=== PATIENT | female | born 1970 | race Caucasian/White ===

== ENCOUNTER 2017-11-06 19:39 | Emergency (ER) | payer OTHER, SELFPAY ==
[2017-11-06 19:40] VITALS: BP 121/97; PULSE 75; RESP 18; TEMP 36.9; O2SAT 100; BMI 20.3
--- NOTE | 2017-11-06 20:17 | EKG12_ITS ---
Test Reason : CP Blood Pressure : / mmHG Vent. Rate : 073 BPM Atrial Rate : 073 BPM P-R Int : 120 ms QRS Dur : 086 ms QT Int : 368 ms P-R-T Axes : 042 083 045 degrees QTc Int : 405 ms Normal sinus rhythm Normal ECG Confirmed by RHONDA BARR MD ([id number]), photo editor BHARAT ZAMARRIPA ([id number]) on 11/12/2017 2:34:11 PM Referred By: GUICHO Confirmed By:RHONDA BARR MD
--- NOTE | 2017-11-06 20:20 | RAD_ITS ---
STUDY: X-RAY CHEST REASON FOR EXAM: Female, 47 years old. Chest pain TECHNIQUE: Frontal view of the chest COMPARISON: None. FINDINGS: The lungs are clear. There are no pleural effusions. There is no pneumothorax. The heart is normal in size. The visualized osseous structures are within normal limits. RAD/Chest 1 View (Portable) IMPRESSION: No acute thoracic pathology. Electronically Signed: Myron Lynn, at 20:34 EDT Tel , Service support ,
--- NOTE | 2017-11-06 20:20 | ED.RN ---
no old ekgs in [facility].
[2017-11-06] MEDS: Aspirin 81 MG TAB.CHEW 324 MG PO (20:26)
[2017-11-06 20:27] VITALS: O2SAT 99
[2017-11-06 20:46] LABS: Absolute Lymphocyte Count 2.11 X10^3/ul (0.83-4.51); Absolute Neutrophil Count 5.3 X10^3/uL (2.0-7.7); Basophil# 0.02 X10^3/uL; Basophil% 0.2 % (0-1); Eosinophil# 0.18 X10^3/uL; Eosinophils% 2.1 % (0-5); Hematocrit 39.2 % (37-47); Hemoglobin 12.8 g/dl (12.0-15.0); Lymphocyte # 2.11 X10^3/ul (4.0); Lymphocyte % 24.5 % (19-41); Mean Corp Hgb Conc 32.7 g/gl (32-36); Mean Corpuscular Hgb 28.6 pg (27.0-32.0); Mean Corpuscular Volume 87.7 fL (81-99); Mean Platelet Vol. 10.7 fl (6.2-12.0); Monocyte# 1.03 X10^3/uL; Monocyte% 11.9 % (0-10); Neutrophil # 5.27 X10^3/uL (2.7-7.7); Neutrophil % 61.2 % (47-70); Platelet Count 278 K/mm3 (150-450); RBC Distribution Width CV 17.3 % (11.6-14.6); RBC Distribution Width SD 54.1 fl (35.1-43.9); Red Blood Count 4.47 M/mm3 (4.2-5.4); White Blood Count 8.6 K/mm3 (4.4-11.0)
[2017-11-06 20:48] VITALS: BP 113/73; PULSE 69; RESP 17; O2SAT 98
[2017-11-06 20:48] LABS: POSITIVE COUNT NO; POSITIVE DIFFERENTIAL NO; POSITIVE MORPHOLOGY NO
--- NOTE | 2017-11-06 20:48 | ED.VISSUMM ---
- ER Visit Summary Date of Service: 11/06/17 Chief Complaint: Chest pain History of Present Illness: The patient is a 47 F presenting with chest pain. She states that she has tightness in her chest which radiates to her jaw and right arm. She states she felt flushed and dizzy with this. She states it started approximately 30 minutes ago. She states it is starting to improve. At its worst it was 6 out of 10. She denies PE/DVT risk factors. Denies CAD risk factors. She is not a smoker. Physical Examination: Vitals are stable. Patient is afebrile. Alert no acute distress. HEENT exam is unremarkable. Neck is supple. Lungs are clear and equal bilaterally. Heart is regular rate and rhythm. Abdomen is soft nontender nondistended. Extremities are unremarkable. Skin is warm and dry. No focal neurologic deficit. Remainder of exam is unremarkable. Emergency Department Course and Treatment: Patient was given aspirin on arrival. CBC, chemistries unremarkable. Troponin is negative. EKG is sinus rate of 73. Chest x-ray shows no acute process. Patient is pain-free on reevaluation. Recommend admission for further evaluation and stress testing. Patient does not want to be admitted to the hospital. She is advised risks of RI and . Patient verbalizes understanding of this risk and signed out AGAINST MEDICAL ADVICE. She will follow-up with her primary care physician. She is advised return to ED if she has any worsening complaints. Disposition: Left AGAINST MEDICAL ADVICE Impression: Chest pain This note was generated with [employer] dictation software. It may contain incorrect words, spelling, and punctuation that were not noted in review of the chart prior to signing ED Disposition - Plan for ED Patient: Chief Complaint: Chest Pain Instructions: ED Chest Pain Atypical Unkn Cause Referrals: Jaja Pennington MD [Primary Care Provider] -
[2017-11-06 20:57] LABS: Anion Gap 6 (5-15); BUN 15 mg/dL (7-18); BUN/Creat Ratio 17.9 RATIO (10-20); Calcium,Total 8.9 mg/dL (8.5-10.1); Chloride 108 mmol/L (98-107); Creatinine, Serum 0.84 mg/dL (0.55-1.02); EST Glomerular Filtration Rate 78 mL/min (>60); Est Glom Filt Rate - Afr Amer 94 mL/min (>60); Estimated Creatinine Clearance 71.08 ml/min; Glucose 93 mg/dL (74-106); Potassium 3.8 mmol/L (3.5-5.1); Sodium Level 143 mmol/L (136-145)
[2017-11-06 21:10] VITALS: BP 110/69; PULSE 67; RESP 24; O2SAT 99
--- NOTE | 2017-11-06 21:45 | ED.DEP ---
ED Disposition - Plan for ED Patient: Chief Complaint: Chest Pain Instructions: ED Chest Pain Atypical Unkn Cause Referrals: Jaja Pennington MD [Primary Care Provider] -
[2017-11-06 22:11] VITALS: BP 109/79; PULSE 64; RESP 18
== END 2017-11-06 22:18 | disposition home or self-care (01) ==
PROVIDERS: Emergency Provider Emergency Medicine; Family Provider Family Medicine; PCP Family Medicine
DX: R07.9 Chest pain, unspecified (principal)
CPT/HCPCS: 71045; 80048; 84484; 85025; 93005; 99284; A4216

== ENCOUNTER 2018-10-16 14:09 | Emergency (ER) | payer OTHER, SELFPAY ==
[2018-10-16 14:10] VITALS: BP 114/76; PULSE 99; RESP 18; TEMP 37.6; O2SAT 98; BMI 21.4
--- NOTE | 2018-10-16 15:08 | US_ITS ---
STUDY: ULTRASOUND OF THE FEMALE PELVIS - COMPLETE REASON FOR EXAM: Female, 48 years old. , ovarian cyst LMP: 10/01/2018 TECHNIQUE: Transabdominal and Transvaginal TECHNICAL QUALITY: Adequate. COMPARISON: None. FINDINGS: The uterus is anteverted and is in a midline position. The uterus measures 9.6 x 4.5 x 5.2 cm. There is a Nabothian cyst of the cervix. The endometrium measures 12 mm in thickness, and is hypoechoic. There is no demonstrated endometrial mass. There is no demonstrated myometrial mass. I.U.D. - The patient does not have an I.U.D. The right ovary is visualized. The right ovary measures 9.8 x 10.9 x 10.1 cm. 8.3 cm round anechoic mass with increased transmission within the right ovary consistent with a physiologic cyst, poor ovarian cyst, or cystadenoma. Follow-up ultrasound is recommended in 12 months document stability. There is no visualized right adnexal mass or complex lesion. There is normal arterial and normal venous vascularity. The left ovary is visualized. The left ovary measures 6.7 x 6.2 x 4.2 cm. 6.6 cm hypoechoic mass with increased through transmission with a 2.5 cm mural nodule which is hyperechoic which may represent an ovarian dermoid. There is no visualized left adnexal mass or complex lesion. There is normal arterial and normal venous vascularity. There is no fluid in the cul-de-sac. The pre void volume of the bladder was ml. The post void volume of the bladder was ml. Polycystic ovary disease: No. US/Transvaginal Non- IMPRESSION: 1. 8.3 cm right physiologic cyst, partly ovarian cyst, cystadenoma. Follow-up ultrasound is recommended in 12 months document stability or resolution. 2. 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 CT and/or MRI may be useful. Electronically Signed: Pineda Lynn MD at 16:16 EDT Tel , Service support ,
--- NOTE | 2018-10-16 15:08 | CT_ITS ---
STUDY: CT ABDOMEN AND PELVIS WITH CONTRAST REASON FOR EXAM: Female, 48 years old. Bloating, right lower quadrant pain RADIATION DOSAGE (If Supplied By Facility): CTDIvol = ( 7.50 ) mGy, DLP = ( 317.20 ) mGycm TECHNIQUE: Transaxial images were obtained from the dome of the diaphragm to the symphysis pubis without oral contrast. 100 IV/Oral Isovue 300 was administered. Sagittal and coronal images were reconstructed. Individualized dose optimization techniques were used for this CT. COMPARISON: None. FINDINGS: The visualized lung bases are unremarkable. The visualized portions of the heart are within normal limits. Liver is unremarkable aside from a subtle hypoattenuation in the right lobe, likely hemangioma. No suspicious enhancing lesion is noted. There is a thin rim of ascites around the right lobe of the liver. Normal gallbladder and extrahepatic biliary system. Normal spleen. Normal pancreas. Normal bilateral adrenal glands. Normal right kidney. Normal left kidney. Normal visualized stomach. Normal small intestine. Normal colon. The appendix is visualized and appears normal. Appendix best seen on axial images 75-82 Normal abdominal aorta. Normal inferior vena cava. Normal retroperitoneum. Normal urinary bladder. There is a large complex cystic structure likely originating in the pelvis and extending into the mid lower abdomen, likely ovarian in origin. It measures approximately 10.2 x 9.1 x 9.2 cm. It is causing some mass effect upon lower abdominal bowel loops. Though it likely represents a benign cystadenoma a more sinister neoplastic process cannot be excluded. Further evaluation with ultrasound or MRI would be of help. There is associated free fluid No suspicious lymphadenopathy, or omental thickening noted. Normal abdominal wall. Normal osseous structures. CT/Abdomen/Pelvis WITH Contrast IMPRESSION: Large complex cystic mass in the lower abdomen and pelvis, likely ovarian in origin measuring 10.2 x 9.1 x 9.2 cm. I suspect this likely is a benign cystadenoma but a more sinister neoplastic process cannot be excluded. Recommend further evaluation with MRI or ultrasound, as well as correlation with tumor markers. There is mass effect upon bowel loops and some associated free fluid is noted but there is no suspicious omental thickening or adenopathy noted 2 cm hypoattenuation in the right lobe of the liver, likely hemangioma Normal appendix visualized Electronically Signed: Jonathan Singh MD at 17:52 EDT , Service support ,
--- NOTE | 2018-10-16 15:10 | ED.VISSUMM ---
- ER Visit Summary Date of Service: 10/16/18 Chief Complaint: Abdominal pain History of Present Illness: The patient is a [address] Lockwood and Dr. Damon. She reports that she has a known 10 cm right ovarian cyst that was diagnosed in June. She had a repeat ultrasound in July and an MRI this month. She reports that she is supposed to have surgery for this in the future, but it is not scheduled. Patient reports that she has lower abdominal pain that began 3 days ago. Initially pain was stabbing. It is now a dull, continuous pain. She is pain-free currently. She reports that her pain is 8 out of 10 if she moves or lays on her right side. She reports she was nauseated and vomiting 2 days ago. She has not vomited since then. She vomited 6 times then and there was no blood in her emesis. She denies any diarrhea. Her last bowel was today. She said no melena or hematochezia. No dysuria or frequency. She does report that she is felt bloated and had a poor appetite. Physical Examination: Vitals: Stable. Afebrile. General: Well-nourished and well-developed. Head: Normocephalic atraumatic. Neck: Supple, no lymphadenopathy. No JVD. Nontender. Cardiovascular: Regular rate and rhythm. No murmurs. Respiratory: No respiratory distress. Clear to auscultation bilaterally. Abdominal: Soft, mild suprapubic tenderness and moderate right lower quadrant tenderness to palpation. It does feel as though there is a palpable mass in the right lower quadrant. Nondistended, normal bowel sounds. No guarding, rebound, or peritoneal signs. Back: Nontender. Extremities: Nontender, no edema. Skin: Normal color, no rash. Neurologic: Alert and oriented ?3. Cranial nerves II through XII are intact. Normal strength and sensation. Psych: Normal affect. Test Results: CBC shows a white count of 14.8 with 82 segmented neutrophils and 7 lymphocytes. Chem-7 shows a glucose of 109. Urinalysis is negative. Clinical Impression(s) from Imaging Studies Abdomen/Pelvis CT 10/16/18 15:08 IMPRESSION: Large complex cystic mass in the lower abdomen and pelvis, likely ovarian in origin measuring 10.2 x 9.1 x 9.2 cm. I suspect this likely is a benign cystadenoma but a more sinister neoplastic process cannot be excluded. Recommend further evaluation with MRI or ultrasound, as well as correlation with tumor markers. There is mass effect upon bowel loops and some associated free fluid is noted but there is no suspicious omental thickening or adenopathy noted 2 cm hypoattenuation in the right lobe of the liver, likely hemangioma Normal appendix visualized Electronically Signed: Jonathan Singh MD at 17:52 EDT , Service support , Transvaginal US 10/16/18 15:08 IMPRESSION: 1. 8.3 cm right physiologic cyst, partly ovarian cyst, cystadenoma. Follow-up ultrasound is recommended in 12 months document stability or resolution. 2. 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 CT and/or MRI may be useful. Electronically Signed: Pineda Lynn MD at 16:16 EDT Tel , Service support , Emergency Department Course and Treatment: Patient had an IV placed. She was given a liter normal saline. She refused pain or nausea medications. Treatment Plan: Patient was discussed with Dr. Ndiaye who spoke with Dr. Damon, whom the patient saw in the office yesterday. This ovarian cyst is so large that it is unlikely that she is having intermittent torsion. She does not have appendicitis. She will be discharged instructions to follow-up with Dr. Paul next week for further evaluation and treatment. She is refused pain or nausea medications at home. Return to the emergency department for any worsening symptoms. Disposition: To home in improved and stable condition. Impression: 1. Right ovarian cyst. This note was generated with [employer] software. It may contain incorrect words, spelling, and punctuation that were not noted in review of the chart prior to signing ED Disposition - Plan for ED Patient: Disposition: Home or Assisted Living Instructions: Ovarian Cyst Referrals: Sherri Paul MD [STAFF PHYSICIAN] - As soon as possible
[2018-10-16] MEDS: 0.9% Normal Saline 1,000 ML 1000 ML IV (15:15)
[2018-10-16 15:32] LABS: Absolute Neutrophil Count 12.2 X10^3/uL (2.0-7.7); Basophil# 0.02 X10^3/uL; Basophil% 0.1 % (0-1); Eosinophil# 0.02 X10^3/uL; Eosinophils% 0.1 % (0-5); Hematocrit 37.3 % (37-47); Hemoglobin 12.2 g/dl (12.0-15.0); Internal QC Validated? YES +Cl - CLEAR BKGD; Lymphocyte % 7.4 % (19-41); Mean Corp Hgb Conc 32.7 g/gl (32-36); Mean Corpuscular Hgb 29.4 pg (27.0-32.0); Mean Corpuscular Volume 89.9 fL (81-99); Mean Platelet Vol. 10.8 fl (6.2-12.0); Monocyte# 1.48 X10^3/uL; Neutrophil # 12.17 X10^3/uL (2.7-7.7); Neutrophil % 82.2 % (47-70); POSITIVE COUNT NO; POSITIVE DIFFERENTIAL NO; POSITIVE MORPHOLOGY NO; Platelet Count 230 K/mm3 (150-450); Pregnancy, Serum, hCG Quali. NEGATIVE Negative; RBC Distribution Width CV 14.8 % (11.6-14.6); Red Blood Count 4.15 M/mm3 (4.2-5.4); White Blood Count 14.8 K/mm3 (4.4-11.0)
[2018-10-16 15:37] LABS: Anion Gap 8 (5-15); BUN 11 mg/dL (7-18); BUN/Creat Ratio 12.2 RATIO (10-20); Calcium,Total 9.2 mg/dL (8.5-10.1); Chloride 99 mmol/L (98-107); EST Glomerular Filtration Rate 71 mL/min (>60); Est Glom Filt Rate - Afr Amer 86 mL/min (>60); Estimated Creatinine Clearance 63.92 ml/min; Glucose 109 mg/dL (74-106); Potassium 3.6 mmol/L (3.5-5.1); Sodium Level 136 mmol/L (136-145)
[2018-10-16 15:39] LABS: Bacteria 0 SEEN /hpf (None Seen); Mucous, Urine 0 SEEN /hpf (<or=2+)
[2018-10-16 15:44] LABS: Color, Urine Yellow (Yellow); Glucose, Dipstick Normal (Normal); Ketone-Dipstick 5 mg/dl (Negative); Leukocyte Esterase-Dipstick 25 /ul (Negative); Nitrite-Dipstick Negative (Negative); Occult Blood-Urine 10 /ul (Negative); Protein-Dipstick Negative (Negative); Specific Gravity, Urine 1.005 (1.002-1.030); Urine Bilirubin Dipstick Negative (Negative); Urine Clarity Sl. Cloudy (Clear); Urine Urobilinogen Normal (Normal)
[2018-10-16 15:57] LABS: Red Blood Cells-Urine 0-5 SEEN /hpf (0-5); Squamous Epithelial Cells - UA 0-5 SEEN /hpf (5-10); White Blood Cells 0-5 SEEN /hpf (0-5)
[2018-10-16 16:28] LABS: AST(SGOT) 12 U/L (15-37); Alanine Aminotransfer ALT/SGPT 21 U/L (13-56); Albumin, Serum 3.6 g/dL (3.2-5.0); Alkaline Phosphatase 67 U/L (45-117); Bilirubin, Direct 0.18 mg/dL (0.00-0.30); Globulin 4.5 g/dL (2.2-4.2); Protein, Total 8.1 g/dL (6.4-8.2)
[2018-10-16 16:38] LABS: Lipase 82 U/L (73-393)
[2018-10-16 17:03] VITALS: RESP 18
[2018-10-16 18:59] VITALS: BP 113/70; PULSE 106; RESP 16; O2SAT 95
== END 2018-10-16 19:03 | disposition home or self-care (01) ==
LOC: ED 16:14
PROVIDERS: Emergency Provider Emergency Medicine; Family Provider Family Medicine; PCP Family Medicine
DX: N83.201 Unspecified ovarian cyst, right side (principal)
CPT/HCPCS: 74177; 76830; 80048; 80076; 81001; 83690; 84703; 85025; 96360; 96361; 99283; J7030; Q9967; A4216

== ENCOUNTER 2018-10-17 20:21 | Inpatient (IN) | payer OTHER, SELFPAY ==
[2018-10-16 14:10] VITALS: BMI 21.4
[2018-10-17 20:22] VITALS: BP 111/72; PULSE 106; RESP 14; TEMP 35.9; O2SAT 96; BMI 21.7
--- NOTE | 2018-10-17 20:54 | ED.VISSUMM ---
- ER Visit Summary Date of Service: 10/17/18 Chief Complaint: Abdominal pain History of Present Illness: The patient is a 48 F with 2 known ovarian cyst. Patient was seen in the ED yesterday and had a CAT scan and an ultrasound. Patient states she spoke with Dr. Damon today was told to come to the hospital for surgery. She last ate approximately an hour ago. She has had Tylenol today for pain declines anything further at this time. Physical Examination: Vital signs significant only for heart rate of 106. Patient sitting upright in bed no acute distress. Heart is regular rate and rhythm. Lung sounds are clear. Abdomen is soft with mild tenderness, worse in the right lower quadrant. No guarding or rebound. Test Results: [] Emergency Department Course and Treatment: I reviewed the patient's work-up from yesterday. I spoke with Dr. Damon as well. We will redraw a CBC and a type and screen at this time. Patient will be admitted to [facility] floor Dr. Damon will see her there. Treatment Plan: [] Disposition: Admit Impression: Ovarian cysts This note was generated with [employer] dictation software. It may contain incorrect words, spelling, and punctuation that were not noted in review of the chart prior to signing ED Disposition - Plan for ED Patient: Referrals: Jaja Pennington MD [Primary Care Provider] -
[2018-10-17] MEDS: 0.9% Normal Saline 1,000 ML 150 ML IV (21:02)
--- NOTE | 2018-10-17 21:03 | PCM.HP.OB ---
- Problem List (1) Bilateral ovarian cysts Status: Acute (2) Abdominal pain Status: Acute History Date of Admission: 10/17/18 History of this : This is a 48 year-old who presents to the ED with severe abdominal pain. She has known bilateral ovarian cysts. She went into the ED yesterday and had imaging repeated at that time. She was discharged home. She called in today reporting persistent severe pain that is 7-8/10. She states she is unable to move because of the pain and she cannot stand up straight given the discomfort. The pain is bilateral across her pelvis and abdomen. She denies any other symptoms. Allergies No Known Allergies Allergy (Verified 10/17/18 20:24) Home Medications: Home Medications NK 11/06/17 Acetaminophen [Tylenol Extra Strength] 500 - 1,000 mg PO Q6H PRN PRN 10/17/18 Smoking Status: Never smoker History Past Pregnancies: Past Pregnancies Delivery Date Name GA/Weeks Outcome Route Weight Infant Gender Labor Length Anesthesia Delivery Location Provider FOB Review of Systems Constitutional: Denies: Chills, Fever Cardiovascular: Denies: Chest Pain Respiratory: Denies: Shortness of Breath Gastrointestinal: Reports: Abdominal Pain, Diarrhea. Denies: Constipation, Nausea, Vomiting Genitourinary: Denies: Dysuria Physical Exam Vitals: Vital Signs Temp Pulse Resp BP Pulse Ox 96.6 F L 106 H 14 111/72 96 10/17/18 20:22 10/17/18 20:22 10/17/18 20:22 10/17/18 20:22 10/17/18 20:22 General: Alert, No apparent distress HEENT: Atraumatic Cardiovascular: Regular rate Lungs: Normal air movement Abdomen: Soft, - - +Diffusely tender and voluntary gaurding Extremities:: No edema Neurological: Neuro grossly intact Assessment/Plan All Active Problems Bilateral ovarian cysts (Acute) Abdominal pain (Acute) This is a 48 year-old with known bilateral ovarian cysts and severe abdominal pain. +Voluntary guarding on exam and diffuse tenderness. - CT scan yesterday in the ED shows a 10x9x9 cm cystic mass in the pelvis with mass effect on the bowel - Pelvic US yesterday shows a right ovarian cyst measuring 8.3 cm in size, and a 6.6 cm solid mass in the left ovary that is likely a dermoid - She had a CA-125 in the office that was normal - Will admit for bilateral cystectomy - Discussed r/b/a of a laparoscopic cystectomy, possible laparotomy, possible oophorectomy. Pt desires to proceed with surgery given severe, persistent pain and concern for torsion
[2018-10-17 21:27] LABS: Absolute Lymphocyte Count 0.85 X10^3/ul (0.83-4.51); Basophil# 0.01 X10^3/uL; Basophil% 0.1 % (0-1); Eosinophil# 0.04 X10^3/uL; Eosinophils% 0.3 % (0-5); Hematocrit 31.1 % (37-47); Hemoglobin 10.3 g/dl (12.0-15.0); Lymphocyte # 0.85 X10^3/ul (4.0); Mean Corp Hgb Conc 33.1 g/gl (32-36); Mean Corpuscular Hgb 29.6 pg (27.0-32.0); Mean Corpuscular Volume 89.4 fL (81-99); Mean Platelet Vol. 10.1 fl (6.2-12.0); Monocyte# 1.19 X10^3/uL; Monocyte% 9.8 % (0-10); Neutrophil # 10.02 X10^3/uL (2.7-7.7); Neutrophil % 82.6 % (47-70); Platelet Count 188 K/mm3 (150-450); RBC Distribution Width CV 14.6 % (11.6-14.6); RBC Distribution Width SD 47.6 fl (35.1-43.9); Red Blood Count 3.48 M/mm3 (4.2-5.4); White Blood Count 12.1 K/mm3 (4.4-11.0)
[2018-10-17 21:30] LABS: POSITIVE COUNT NO; POSITIVE DIFFERENTIAL NO; POSITIVE MORPHOLOGY NO
[2018-10-17 22:26] VITALS: BMI 20.6
[2018-10-17 22:37] VITALS: BMI 20.6
[2018-10-17 22:38] VITALS: BP 114/64; PULSE 92; RESP 16; TEMP 36.9; O2SAT 99; BMI 20.6
[2018-10-17 23:30] LABS: Internal QC Validated? YES +Cl - CLEAR BKGD; Pregnancy, Urine Negative Negative
--- NOTE | 2018-10-17 23:30 | OP.PCM_ITS ---
Problem List (1) Bilateral ovarian cysts Status: Acute (2) Abdominal pain Status: Acute Report of Operation Date of Procedure: 10/17/18 Pre-Operative Diagnosis: Bilateral ovarian cysts, abdominal pain Post-Operative Diagnosis: As above, right ovarian torsion Surgery/Procedure Performed:: Laparoscopic right salpingoophorectomy, left ovarian cystectomy, mini laparotomy Description of Surgical Findings:: Enlarged right ovarian mass about 8-10 cm in size with a torsion x 2. The right ovarian mass appeared inflamed with both solid and cystic components. The mass had filmy adhesions to the omentum and pelvic side wall. No identifiable right ovarian tissue. The right fallopian tube was edematous and purple in color. The left ovary had a 2-3 cm cyst consistent with a likely dermoid present, and the left ovary was otherwise normal. No torsion of the left ovary. The left fallopian tube was normal. Uterus and pelvis normal appearing. Descent of the uterus and cervix almost to the level of the introitus Type of Anesthesia:: General Special Medications: None Specimen's removed: Right ovary and fallopian tube, left ovarian cyst Drains: None Estimated Blood Loss (mL): 50 cc Fluids Replaced: 2500 cc Description of Procedure: Physician Practice Manager: Dr. García Patient was prepped and draped in usual sterile fashion in dorsal lithotomy position using yellow fin stirrups. A weighted speculum was placed in the vagina to expose the cervix. A single tooth tenaculum was placed on the anterior lip of the cervix. A uterine manipulator was placed. Gloves were then changed and att ention was turned to the abdominal portion of the case. A supraumbilical incision was made to accommodate a 12 mm port. The 12 mm port was placed under direct visualization using the camera. Once confirmed intraperitoneal, CO2 insufflation was initiated. A left lateral 5 mm port was then placed. A right lateral 5 mm port was placed. The pelvis was inspected with the above findings noted. The right ovary was elevated out of the pelvis and untwisted x 2. The right uteroovarian ligament was cauterized and transected. The right ureter was then identified. The right IP was cauterized and transected with good visualization of the ureter. The right ovary and fallopian tube were removed and placed along the right pelvic side wall. The left ovary was then elevated out of the pelvis and using scissors an incision was made on the ovary. The suction edging machine catcher was placed in the incision and schwab-tamayo fluid was drained. The incision was extended, and using blunt dissection the ovarian cyst was shell ed out and removed from the left ovary. The remainder of the left ovarian tissue appeared normal. Hemostasis was noted. A mini Pfannenstiel laparotomy was made. A laparoscopic bag was placed through the mini laparotomy incision and clamps were placed around it to maintain a pneumoperitoneum. The bag was opened and the right ovary and tube, as well as the left ovarian cyst, were placed in the bag. The bag was brought up to the incision and opened. The laparoscopic instruments were removed. The left ovarian cyst was removed from the bag and sent to pathology for review. The right ovary was drained of serous fluid. Using Shirley clamps the right ovary was then removed and sent to pathology for review. The fascia of the mini laparotomy was then closed with vicry in a running fashion. The camera was then placed and pneumoperitoneum was obtained. The pelvis was irrigated and hemostasis was noted. The camera and ports were removed. Incisions were closed with Monocryl and Dermabond. All instruments were removed from the vagina. Patient tolerated the procedure well and was taken to the recovery room in stable condition. Grafts/Implants Used: None - Complications None - Admit VTE Documentation VTE Present on Admission: No VTE Mechan Device Prophylaxis: SCD's VTE Pharm Prophylaxis ordered?: No
--- NOTE | 2018-10-17 23:30 | CYST_PTH ---
PATIENT: DAVID BLACKBURN LOC: [facility] U#:[id number] AGE/SX: 48/F ROOM: MS321 RE10/17/[address]: Dr. Augusta Damon DO : 1970 BED: 1 DIS: 10/18/2018 SPEC #: [id number] RECD: 10/20/18 07:53 STATUS: MARY REVeronica #: [id number] [place]: 10/17/18 23:[address]: Augusta Damon DEPT: SURGICAL PATHOLOGY RECD BY: Elijah Mccauley ENTERED: 10/20/18 10:09 SP TYPE: Cyst OTHR DR: Dr. Jaja Pennington MD Tissues: A - OVARIAN CYST B - OVARIAN CYST Procedures: Surgery Specimen Level IV HEADER OPERATION: Laparoscopic, ovarian cystectomy PRE-OP DIAGNOSIS: Bilateral ovarian cysts, pelvic pain TISSUE SUBMITTED: A. Left ovarian cyst, B. Right ovarian cyst, tube MICROSCOPIC DIAGNOSIS A. Left ovarian cyst, cystectomy: Mature cystic teratoma. B. Right ovarian cyst and fallopian tube, salpingo-oophorectomy: Ovary with marked recent stromal hemorrhage, acute and chronic inflammation, consistent with ovarian torsion. Fallopian tube with marked congestion, acute and chronic inflammation. CE:corby 10/21/18 MICROSCOPIC DESCRIPTION Slides are reviewed. GROSS DESCRIPTION A - Received in fixative is one container labeled with the patient's name and designated left ovarian cyst. The specimen consists of a cystic ovary measuring 5 x 3.7 x 3 cm. The outer surface is inked red. Serial sectioning of the ovary reveals a lumen filled with cheesy material. Child Development Assistant sections are submitted in four cassettes. B - Received in fixative is one container labeled with the patient's name and designated right ovarian cyst and tube. The specimen consists of a large brownish-schwab cystic ovary with attached possible fallopian tube. The cystic ovary measures 9.7 x 9.5 x 5.5 cm. The fallopian tube portion measures 7.5 cm in length and 2.7 cm in possible diameter. Serial sectioning of the ovary reveals brown, hemorrhagic infarcted ovarian parenchyma. No normal viable ovarian parenchyma is identified. The cyst-lining wall is smooth. Grossly, it is compatible with ovarian torsion. The serosa of the fallopian tube portion reveals obliterated lumen. Child Development Assistant sections are submitted in seven cassettes as follows: 1-5 - premium representative sections of the ovary, 6 & 7 - premium representative sections of the fallopian tube. / FA:corby 10/20/18 TC:1 CPT: 04387 x2
[2018-10-18] VITALS (9 sets, daily range): BP systolic 102–126; BP diastolic 60–84; PULSE 60–100; RESP 14–18; TEMP 35.9–37.1; O2SAT 93–100
[2018-10-18] MEDS: Bupivacaine Mpf 0.5% 30 ML VIAL (00:30)
[2018-10-18] MEDS: Lactated Ringers 1,000 ML 75 ML IV (02:49)
[2018-10-18] MEDS: Ketorolac 15 MG/ML Vial 30 MG IV ×2 (03:10→08:37)
[2018-10-18] MEDS: Ondansetron 4 MG/2 ML Vial IV (03:10)
--- NOTE | 2018-10-18 08:24 | PN.OBGYN_ITS ---
Patient Problems: Active and Suspected Problems Bilateral ovarian cysts (Acute) Abdominal pain (Acute) Subjective: Pt doing well. Pain is improved. She has not yet ambulated or voided. Tolerating ice chips without nausea or vomiting. Denies lightheadedness, CP, SOB, leg pain - Physical Exam General: Alert, No apparent distress HEENT: Atraumatic Lungs: - - No increased resp effort Abdomen: Soft, Non-Distended, - - ATTP, incisions c/d/i Extremities: No edema Skin: No rashes Neurological: Neuro grossly intact Psych/Mental Status: Normal Affect, Appropriate Vital Signs Temp Pulse Resp BP Pulse Ox 98.0 F 66 16 102/60 95 10/18/18 06:55 10/18/18 06:55 10/18/18 06:55 10/18/18 06:55 10/18/18 06:55 Oxygen Flow Rate (L/min) 98 Oxygen Delivery Method Room Air Weight: 116 lb 6.465 oz Body Mass Index (BMI) 20.6 Intake and Output for Last 24 Hours 10/16/18 10/17/18 10/18/18 23:59 23:59 23:59 Intake Total 3415 / 3415 Output Total 300 / 300 Balance 3115 / 3115 Laboratory Tests Past 24 Hrs 10/17/18 10/17/18 10/17/18 21:00 21:00 23:15 WBC 12.1 H RBC 3.48 L Hgb 10.3 L Hct 31.1 L MCV 89.4 MCH 29.6 MCHC 33.1 RDW 14.6 RDW Differential 47.6 H Plt Count 188 MPV 10.1 Immature Gran % (Auto) 0.200 Neut % (Auto) 82.6 H Lymph % (Auto) 7.0 L [place] % (Auto) 9.8 Eos % (Auto) 0.3 Baso % (Auto) 0.1 Absolute Neuts (auto) 10.0 H Absolute Lymphs (auto) 0.85 Total Counted Not Reportable Urine Test Negative Blood Type O POSITIVE Antibody Screen NEGATIVE Medical Necessity - Tobacco Use Smoking Status: Never smoker Assessment/Plan All Active Problems Bilateral ovarian cysts (Acute) Abdominal pain (Acute) S/p laparoscopic right oophorectomy, left ovarian cystectomy - Reviewed surgical findings and surgery in detail with patient - Discussed goals for today: ambulation, spont void, eating a regular diet - Pain is improved and controlled. Pt does not want any narcotic pain medication - Once meeting post-op milestones today will d/c home - To follow up in the office in 1 week for post-op appointment and to review pathology results
--- NOTE | 2018-10-18 08:35 | DCINST_ITS ---
- Discharge Diagnoses Current Active Problems: Current Active and Chronic Problems Bilateral ovarian cysts (Acute) Abdominal pain (Acute) Ovarian torsion You will use the following diet at home:: No restrictions, Regular Discharge Activity: May Not Drive, May Shower Return to work on:: 10/27/18 - With light duty May resume sexual activity in: 2 weeks Weight Bearing Status: Weight bearing as tolerated Lifting Restrictions: No lifiting > 20 pounds Call your doctor if your incision/area has: Sudden Increased Bleeding, Increased Pain/ Swelling, Increased Redness, Foul Smelling Discharge, Swelling at the incision site Call your doctor if you observe: Fever of 101 or Higher, Inability to urinate, Inability to have a bowel movement, Using more than one pad per hour, Shortness of breath, Dizziness, Fainting spells, Chest pain, Increased palpitations (irregular heartbeat), Calf discomfort, Uncontrolled pain Suture Line Care: Avoid Pulling/Pushing, Avoid Pinching/Bending Remove Dressing in (days):: 2 - Can remove dressing in 2 days. Then remove steri strips in 7 days Cleanse incision/area with: Soap & Water Instructions: Pelvic Laparoscopy Allergies/Adverse Reactions: Allergies No Known Allergies Allergy (Verified 10/17/18 20:24) Medications to take at Discharge NK 11/06/17 Acetaminophen [Tylenol Extra Strength] 500 - 1,000 mg PO Q6H PRN PRN 10/17/18 Primary Care Physician: Jaja Pennington MD [Primary Care Provider] - Test Results: Test results from this visit will be discussed in further detail at your follow- up appointment, if applicable. Please Follow Up With: Augusta Damon DO When: 1 week Proposed Discharge Date: 10/18/18
--- NOTE | 2018-10-18 13:07 | CASEMGMT ---
LEAH CHÁVEZ assessment: Face to Face with patient for initial transition planning/care coordination assessment. LEAH CHÁVEZ introduced self and role at [facility], pt voices understanding and consents to assessment at this time. Pt is sitting up in bed in no distress at this time. Pt is A/Ox4 at this time and answers all questions approrpriately at this time. Care providers, pharmacy, and demographics verified at this time. PCP: [facility] Specialists: Mónica Damon Preferred [facility]acy: [facility] Insurance: [employer] Prescription Benefit: [employer] Living Will/HPOA: Pt states does not have LW/HPOA and declines info at this time. LNOK: Rose Koch, daughter Living Arrangements: Pt states lives with 11yo daughter in home and states no concerns at home at this time. Pt is independent with ADL's. Transportation: Pt states drives self and states no transportation concerns at this time. DME/HHC: Pt states no current DME or need for any at this time. Pt states no hx of HHC or SNF in the past. Pt states no concerns with going home at time of discharge. 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 Pt states does not smoke or drink ETOH. Pt states no further questions/concerns/needs at this time. CM to follow for any further discharge planning/needs. Advised pt to ask for CM if any further questions/concerns/needs arise, voices understanding. Pt Goal: [place] LEAH CHÁVEZ
== END 2018-10-18 14:14 | disposition home or self-care (01) | DRG 743 ==
LOC: ED 20:59 → MS3 22:11
PROVIDERS: Anesthesiology; Admitting Provider Obstetrics & Gynecology; Emergency Provider Emergency Medicine; Family Provider Family Medicine; PCP Family Medicine; Referring Provider Obstetrics & Gynecology; Visit Provider Obstetrics & Gynecology
PROC: 0UT50ZZ Resection of Right Fallopian Tube, Open Approach (ICD-10-PCS; principal; 2018-10-17 23:30)
DX: N83.511 Torsion of right ovary and ovarian pedicle (principal); N83.202 Unspecified ovarian cyst, left side; N83.201 Unspecified ovarian cyst, right side
CPT/HCPCS: 81025; 85025; 86850; 86900; 88305; 99284; J7030; J7120; A4216; J2405